=== PATIENT | female | born 1955 | race Asian ===

== ENCOUNTER 2017-01-14 08:33 | Day surgery (SDC) | payer OTHER ==
[~2017-01-14] VITALS: Ht 152.4 cm; Wt 60.6 kg
[2017-01-14] VITALS (13 sets, daily range): BP systolic 131–154; BP diastolic 77–92; PULSE 54–72; RESP 15–21; Ht 152.4 cm; Wt 60.6 kg
[~2017-01-14 08:33] MED LIST: CEFAZOLIN 2 GM/50 ML (PMX) 50 ML IVPB ONE; SOD CHLORIDE 0.9% 1,000 ML IV SCH
[2017-01-14] MEDS ORDERED: MIDAZOLAM 1 MG/ML 2 ML INJ ONE (10:43)
[2017-01-14] MEDS ORDERED: ROCURONIUM 50 MG INJ ONE (10:43)
[2017-01-14] MEDS ORDERED: PROPOFOL 20 ML ONE (10:43)
[2017-01-14] MEDS ORDERED: FENTAnyl 50 MCG/ML VIAL ONE (10:43)
[2017-01-14] MEDS ORDERED: NEOSTIGMINE 3 MG/3 ML SYRINGE ONE (10:43)
[2017-01-14] MEDS ORDERED: LIDOCAINE 2% (SDV) 5 ML INJ ONE (10:43)
[2017-01-14] MEDS ORDERED: GLYCOPYRROLATE 0.4 MG INJ ONE (10:43)
[2017-01-14] MEDS ORDERED: SUCCINYLCHOLINE CHLORIDE 100 MG/5 ML SYG IV ONE (10:44)
[2017-01-14] MEDS ORDERED: ONDANSETRON 4 MG INJ ONE (10:49)
[2017-01-14] MEDS ORDERED: CEFAZOLIN 1 GM INJ ONE (10:49)
[2017-01-14] MEDS ORDERED: ATROPINE 1 MG/10 ML SYRINGE IV PRN ×2 (11:00)
[2017-01-14] MEDS ORDERED: FENTAnyl 50 MCG/ML VIAL IV PRN ×4 (11:00)
[2017-01-14] MEDS ORDERED: MEPERIDINE 25 MG INJ IV PRN ×2 (11:00)
[2017-01-14] MEDS ORDERED: morphine (1 MG/ML) 10ML SYRINGE IV PRN ×6 (11:00)
[2017-01-14] MEDS ORDERED: hydrALAzine 20 MG INJ IV PRN ×2 (11:00)
[2017-01-14] MEDS ORDERED: ONDANSETRON 4 MG INJ IV PRN ×2 (11:00)
[2017-01-14] MEDS ORDERED: LABETALOL HCL 20MG INJ IV PRN ×2 (11:00)
[2017-01-14] MEDS ORDERED: MIDAZOLAM 1 MG/ML 2 ML INJ IV PRN ×2 (11:00)
[2017-01-14] MEDS ORDERED: EPHEDrine SULFATE 50 MG/5 ML SYG IV PRN ×2 (11:00)
[2017-01-14] MEDS ORDERED: HYDROmorphONE (0.2 MG/ML) 10ML SYG IV PRN ×6 (11:00)
[2017-01-14] MEDS ORDERED: OXYCODONE/ACETAMINOPHEN (5/325) TAB PO PRN ×6 (11:00→15:00)
[2017-01-14] MEDS ORDERED: DIPHENHYDRAMINE 50 MG INJ IV PRN ×2 (11:00)
[2017-01-14] MEDS ORDERED: ASPI-664 PO (11:03)
[2017-01-14] MEDS ORDERED: PRAV40TA76 PO (11:04)
[2017-01-14] MEDS ORDERED: AMLO1CAP10 PO (11:05)
[2017-01-14] MEDS ORDERED: HYDR12.58 PO (11:05)
[2017-01-14] MEDS ORDERED: OMEP40CA6 PO (11:06)
[2017-01-14 11:20] LABS: ADD SCAN DIFF NO
[2017-01-14 11:30] LABS: BASOPHIL # 0.1 10^3/ul (0.0-0.1); BASOPHILS % 0.8 % (0.0-2.0); EOSINOPHILS # 0.2 10^3/ul (0.0-0.5); EOSINOPHILS % 3.3 % (0.0-7.0); HEMATOCRIT 39.9 % (37.0-47.0); HEMOGLOBIN 12.8 g/dl (12.0-16.0); LYMPHOCYTES # 1.7 10^3/ul (0.8-2.9); LYMPHOCYTES % 25.6 % (15.0-51.0); MEAN CORPUSCULAR HEMOGLOBIN 28.6 pg (29.0-33.0); MEAN CORPUSCULAR HGB CONC 32.1 g/dl (32.0-37.0); MEAN CORPUSCULAR VOLUME 89.1 fl (82.0-101.0); MEAN PLATELET VOLUME 11.2 fl (7.4-10.4); MONOCYTE # 0.3 10^3/ul (0.3-0.9); MONOCYTES % 5.2 % (0.0-11.0); NEUTROPHIL # 4.3 10^3/ul (1.6-7.5); NEUTROPHILS % 64.8 % (39.0-77.0); PLATELET COUNT 133 10^3/UL (140-415); RED BLOOD COUNT 4.48 10^6/ul (4.20-5.40); WHITE BLOOD COUNT 6.6 10^3/ul (4.8-10.8)
[2017-01-14 11:38] LABS: POTASSIUM 3.9 mmol/L (3.5-5.1)
--- NOTE | 2017-01-14 11:40 | RADRPT ---
PROCEDURE: XR Chest. CLINICAL INDICATION: Preoperative chest TECHNIQUE: Chest AP portable. COMPARISON: No comparison available. FINDINGS: The mediastinal structures are unremarkable. The heart is normal in size and configuration. The pu lmonary vascularity is normal. The lung julien are unremarkable. No consolidation is identified. The pleural spaces are unremarkable. The axial skeleton is unremarkable. IMPRESSION: No active intrathoracic disease. RPTAT: [facility] .Roberto Carlos Barajas MD, MD Date Time Electronically viewed and signed by .Roberto Carlos Barajas MD, MD on 01/14/2017 11:40 .B/
[2017-01-14 11:42] LABS: INR 1.13; PROTIME 14.5 Sec (12.2-14.2); PT RATIO 1.1
[2017-01-14 11:43] LABS: PARTIAL THROMBOPLASTIN TIME 28.9 Sec (25.0-35.0)
[2017-01-14] MEDS ORDERED: ISOSULFAN BLUE 1% 5 ML INJ SC ONE ×2 (11:45→12:39)
[2017-01-14 12:01] LABS: CALCIUM 9.1 mg/dl (8.4-10.2); CREATININE 0.72 mg/dl (0.44-1.00)
--- NOTE | 2017-01-14 13:44 | OPR ---
DATE OF OPERATION: 01/14/2017 PREOPERATIVE DIAGNOSIS: Invasive cancer, right breast. POSTOPERATIVE DIAGNOSIS: Invasive cancer, right breast. PROCEDURE PERFORMED: Right needle-directed partial mastectomy with axillary dissection utilizing se ntinel lymph node technique. SURGEON: Ron Han MD [employer] TECHNICIAN: Srinivas Proctor MD ANESTHESIA: General. ANESTHESIOLOGIST: Malik Frankel MD INDICATIONS FOR PROCEDURE: The patient is a 61-year-old female who underwent screening mammography. She was found to have a suspicious lesion in her right breast. Subsequent core biopsy revealed a well-differentiated invasive cancer. She was counseled as to the risks versus benefits of breast co nservation surgery. She consented and was scheduled for surgery. DESCRIPTION OF PROCEDURE: On the morning of surgery, the patient presented to [facility] where she underwent localization of the lesion performed by attending radio logist, Dr. Blaire Schaefer. Subsequently, she was brought to the operating theater, placed under g eneral endotracheal tube anesthesia. The right breast and axilla were prepped and draped in the usu al sterile fashion. Approximately 4 mL of 1% Lymphazurin blue dye was then injected peritumorally a nd the breast was gently massaged for approximately 12 minutes. Subsequently, an approximately 3 cm incision was made in the right axillary hairline. Subcutaneous tissue was dissected with cautery d own through the clavipectoral fascia. The axilla was entered. A dye-stained lymphatic was easily i dentified, traced to an obvious sentinel node and there was an additional node also in this region. Both nodes appeared small and not suspicious for metastatic disease; however, there were harvested using LigaSure device. Attending pathologist, Dr. Mauricio Edwards was then given the specimen and h e performed intraoperative analysis which was negative for malignancy. The nodes were then sent for permanent pathologic analysis. The wound was irrigated. Minimal bleeding was controlled with caut ajit. The skin was reapproximated with a 4-0 Vicryl suture in subcuticular fashion. Attention was then directed to performing the partial mastectomy. The localization wire was in the upper outer quadrant of the breast. A curvilinear incision was made in this region and subcutaneous tissue was dissected with cautery. Skin edges were elevated with skin hooks and wide circumferenti al dissection of the tissue associated with the wire then took place, taking care to ensure adequate margins. Specimen was elevated, transected, oriented and sent for radiographic confirmation of cap ture. Capture was confirmed. The wound was then irrigated. Minimal bleeding was controlled with c autery. The skin was reapproximated with 4-0 Vicryl suture in subcuticular fashion and Dermabond wa s then applied to both incisions. The patient tolerated the procedure well. The estimated blood lo ss was 20 mL. There were no complications and the patient was transported in stable condition to [facility] recovery room where a circumferential compression dressing was applied. Dictated By: RON HAN MD TL/UMAIR Conf#: [id number] DID#: [id number]
--- NOTE | 2017-01-17 11:59 | RADRPT ---
Vent Rate: 66 bpm RR Interval: 0 msec [place] Interval: 166 msec QRS Duration: 86 msec QT Interval: 430 msec QTC Interval: 450 msec P-R-T [place]: 24 - -3 - 33 degrees Normal sinus rhythm IRBBB Borderline ECG Nonspecific ST-T changes No previous tracing available for comparison Electronically Signed By: Alexis Drummond [id number]
== END 2017-01-14 15:20 | disposition home or self-care (01) ==
LOC: SDS 08:33
PROVIDERS: ATTEND Surgery Surgical Oncology
DX: C50.911 Malignant neoplasm of unspecified site of right female breast (principal); I10 Essential (primary) hypertension
CPT/HCPCS: 19301; 38500; 38792; 71010; 80048; 85025; 85610; 85730; 88307; 93005; J0330; J0690; J2250; J2405; J2710; J3010; Z7512; Z7610; 88342; Q9968